=== PATIENT | male | born 1965 | race Two or more races ===

== ENCOUNTER 2021-09-01 17:09 | Emergency (ER) | payer MEDICAID, OTHER ==
[~2021-09-01] VITALS: Ht 185.4 cm; Wt 80.7 kg
[2021-09-01 17:32] VITALS: BP 126/50
== END 2021-09-01 21:21 | disposition left against medical advice (07) ==
LOC: ER 17:09
DX: S09.90XA Unspecified injury of head, initial encounter (principal); Z53.21 Procedure and treatment not carried out due to patient leaving prior to being seen by health care provider; W22.8XXA Striking against or struck by other objects, initial encounter; Y93.89 Activity, other specified; Y92.89 Other specified places as the place of occurrence of the external cause; Y99.8 Other external cause status

== ENCOUNTER 2022-04-21 09:05 | Emergency (ER) | payer MEDICAID ==
[~2022-04-21] VITALS: Ht 172.7 cm; Wt 117.3 kg
[2022-04-21 11:00] VITALS: BP 138/66
[2022-04-21] MEDS ORDERED: POLYSOL15 OP (11:24)
[2022-04-21] MEDS ORDERED: FLUORESCEIN SOD OPTH TEST STRIP RIGHTEYE ONE (11:30)
[2022-04-21] MEDS ORDERED: TETRACAINE HCL 0.5% OPTH(EYE) SOLN 4ML RIGHTEYE ONE (11:30)
== END 2022-04-21 11:39 | disposition home or self-care (01) ==
LOC: ER 09:05
DX: T15.01XA Foreign body in cornea, right eye, initial encounter (principal); E78.5 Hyperlipidemia, unspecified; X58.XXXA Exposure to other specified factors, initial encounter; Y93.89 Activity, other specified; Y92.89 Other specified places as the place of occurrence of the external cause; Y99.8 Other external cause status
CPT/HCPCS: 65220; 65222